=== PATIENT | female | born 1955 | race Caucasian/White ===

== ENCOUNTER → 2024-09-13 | Outpatient (CLI) | payer MEDICARE, SELFPAY ==
--- NOTE | 2024-09-13 14:05 | XR_ITS ---
Examination: Bone densitometry Date and time of exam:September 13, 2024 1421 hours INDICATIONS: Hysterectomy age 53, osteoporotic compression fracture history in the dorsal lumbar spine, diagnosis osteogenesis imperfecta, family history mother osteoporosis Technique: Lumbar spine and hip total bone mineralization values of an calculated. Peak reference and age match control results have been displayed. Findings: Lumbar spine total bone mineralization is0.775 gm/cm2. This is 2.7 standard deviations below peak reference. This is 0.5 standard deviations below age-matched controls. Hip total bone mineralization is 0.743 gm/cm2 This is 1.6 standard deviations below peak reference. This is 0.1 standard deviations below age-matched controls Impression: There is osteoporosis based on lumbar spine measurements. There is osteopenia based on hip measurements Lumbar mineralization is decreased 8.1% compared with May 08, 2018 Hip mineralization is decreased 4.0% compared with May 08, 2018
== END | disposition home or self-care (01) ==
LOC: CDIM 13:38
PROVIDERS: PCP Physician Assistant Medical; Referring Provider Physician Assistant Medical; Visit Provider Physician Assistant Medical
DX: M81.0 Age-related osteoporosis without current pathological fracture (principal); M85.89 Other specified disorders of bone density and structure, multiple sites
CPT/HCPCS: 77080

== ENCOUNTER 2024-11-01 10:03 | Emergency (ER) | payer MEDICARE, SELFPAY ==
[2024-11-01 10:05] VITALS: BMI 33.0
--- NOTE | 2024-11-01 10:27 | XR_ITS ---
Examination: Lumbar spine 3 views TECHNIQUE: AP lateral coned lateral lower lumbar spine 3 views Date and time: November 01, 2024 1050 hours INDICATIONS: Patient fell today with injury to the lower back, lower back pain. FINDINGS: Severe osteopenia Chronic compressions lumbar vertebral bodies Kyphoplasty L3, L1, T12, T11 No definite acute fracture Significant disc narrowing L5-S1 IMPRESSION: Severe osteopenia No definite acute fracture
--- NOTE | 2024-11-01 10:27 | XR_ITS ---
Examination: Ribs, left, with PA chest, 4 views Technique: Chest PA, RIBS AP, RPO, LPO, 4 views Exam date and time: November 01, 2024 1050 hours INDICATIONS: Patient fell today with into the left chest, left rib pain Findings: Normal heart size No pneumothorax Severe osteopenia No acute rib fractures IMPRESSION: No pneumothorax pulmonary contusion or hemothorax No acute rib fractures
[2024-11-01 10:33] VITALS: BP 130/81; PULSE 74; RESP 17; TEMP 36.8; O2SAT 96
--- NOTE | 2024-11-01 10:44 | PD.EDFALL ---
ED Fall Injury RME/HPI General Chief Complaint: Fall Stated Complaint: BACK/RIB PAIN S/P FALL ON FRIDAY Time Seen by Provider: 11/01/24 10:19 Source: patient Arrival date/time: 11/01/24 10:03 69-year-old female with a history of hypertension presents to the emergency room with a chief complaint of left-sided rib pain and lower back pain after a fall that occurred on Friday. Mode of arrival: ambulatory Limitations: no limitations Related Data Home Medications ?Medication ?Instructions ?Recorded ?Confirmed calcitonin (salmon) 200 1 spray intranasal QDAY 05/04/17 01/12/20 unit/actuation nasal spray aspirin 81 mg tablet,delayed 81 mg PO BID 03/31/19 01/12/20 release ibandronate 150 mg tablet 150 mg PO QMONTH 03/31/19 01/12/20 rivaroxaban 2.5 mg tablet (Xarelto) 2.5 mg PO BID 03/31/19 01/12/20 Previous Rx's ?Medication ?Instructions ?Recorded cyclobenzaprine 10 mg tablet 10 mg PO TID PRN muscle spasm #30 03/31/19 tabs diazepam 5 mg tablet (Valium) 5 mg PO BID PRN muscle spasm #20 01/12/20 tabs Allergies Allergy/AdvReac Type Severity Reaction Status Date / Time No Known Allergies Allergy Verified 11/01/24 10:07 Review of Systems Review of Systems Systems Reviewed: All systems reviewed, normal except as documented Constitutional Constitutional: Reports system reviewed and no additional complaints, except as documented, Denies fatigue, Denies fever(s), Denies headache(s) and Denies weakness Eyes Eyes: Reports system reviewed and no additional complaints, except as documented, Denies blurry vision and Denies change in vision ENT Ears, Nose, Mouth, and Throat: Reports system reviewed and no additional complaints, except as documented, Denies otalgia, Denies headache(s), Denies nasal congestion, Denies throat swelling and Denies vertigo Cardiovascular Cardiovascular: Reports system reviewed and no additional complaints, except as documented, Denies chest pain, Reports dyspnea and Denies dyspnea on exertion Respiratory Respiratory: Reports system reviewed and no additional complaints, except as documented, Denies chest congestion, Denies cough, Reports dyspnea, Denies dyspnea on exertion, Reports pain on inspiration and Denies wheezing Gastrointestinal Gastrointestinal: Reports system reviewed and no additional complaints, except as documented, Denies abdominal pain, Denies cramping, Denies nausea and Denies vomiting Genitourinary Genitourinary: Reports system reviewed and no additional complaints, except as documented Musculoskeletal Musculoskeletal: Reports system reviewed and no additional complaints, except as documented, Reports arthralgias and Denies back pain Integumentary/Breasts Skin/Breast: Reports system reviewed and no additional complaints, except as documented and Denies wounds Neurologic Neurologic: Reports system reviewed and no additional complaints, except as documented, Denies confusion, Denies headache(s), Denies lack of coordination, Denies vertigo and Denies weakness Psychiatric Psychiatric: Reports system reviewed and no additional complaints, except as documented, Denies anxiety, Denies confusion, Denies depression, Denies paranoia, Denies suicidal ideation and Denies tactile hallucinations Endocrine Endocrine: Reports system reviewed and no additional complaints, except as documented and Denies fatigue Hematologic/Lymphatic Hematologic/Lymphatic: Reports system reviewed and no additional complaints, except as documented and Denies lymphadenopathy Allergic/Immunologic Allergic/Immunologic: Reports system reviewed and no additional complaints, except as documented, Denies throat swelling, Denies urticaria and Denies wheezing Past Medical History Past Medical History CARDIAC: Positive Cardiac Disorders, Heart Murmur and Hypertension; Negative Congestive Heart Failure RESPIRATORY: Negative Chronic Obstructive Pulmonary Disease (COPD) GASTROINTESTINAL: Positive Hiatal Hernia GENITOURINARY: Negative Renal Disease MUSCULOSKELETAL: Positive Osteoporosis ENDOCRINE: Negative Diabetes Mellitus Type 1 or Diabetes Mellitus Type 2 Family History FAMILY HISTORY: Positive Family Cardiac Disorders and Family Cancer Social History SMOKING STATUS: Former smoker ED Exam General Limitations: Present no limitations General appearance: Present alert and in no apparent distress Head Head exam: Present atraumatic Eye Eye exam: Present normal appearance, PERRL and EOMI ENT ENT exam: Present normal exam, normal oropharynx and mucous membranes moist Neck Neck exam: Present normal inspection, full ROM and trachea midline Chest Chest inspection: Present normal inspection and symmetric chest wall rise Respiratory Respiratory exam: Present normal lung sounds bilaterally; Absent respiratory distress, wheezes, stridor, accessory muscle use or prolonged expiratory phase Cardiovascular Cardiovascular exam: Present regular rate, normal rhythm and normal heart sounds Abdominal Exam Abdominal exam: Present soft and normal bowel sounds Extremities Exam Extremities exam: Present normal inspection and full ROM Back Exam Back exam: Present normal inspection and full ROM Neurological Exam Neurological exam: Present alert, oriented X3 and CN II-XII intact Psychiatric Psychiatric exam: Present normal affect and normal mood Skin Skin exam: Present warm, dry, intact and normal color Course Quality Measures none Orders Category Date Time Status XR lumbar spine 2-3V Stat Exams 11/01/24 10:27 Completed XR ribs LT min 3V w CXR1V Stat Exams 11/01/24 10:27 Completed Ketorolac Inj [Toradol Inj] Med 11/01/24 10:27 Discontinued 30 mg IM X1 ONE Vital Signs Vital signs: Vital Signs Temperature 98.3 F 11/01/24 10:33 Pulse Rate 74 11/01/24 10:33 Respiratory Rate 17 11/01/24 10:33 Blood Pressure 130/81 11/01/24 10:33 Pulse Oximetry (%) 96 11/01/24 10:33 Oxygen Delivery Method Room Air 11/01/24 10:33 Fall MDM Narrative MDM Narrative:: 69-year-old female with a history of hypertension presents to the emergency room with a chief complaint of left-sided rib pain and lower back pain after a fall that occurred on Friday. Patient is hemodynamically stable and in no apparent distress Physical examination shows clear bilateral lung sounds there is no wheezing stridor or any abnormal breath sounds. Physical examination also shows some left-sided rib tenderness with palpation and some lumbar back pain. X-ray of the lumbar spine was negative for any acute fracture or dislocation. It did show severe osteopenia and chronic compression of the lumbar vertebra. Patient was educated to follow-up with her primary care provider. X-ray of the left sided ribs was negative for any acute rib fractures Patient was discharged and educated to follow-up with primary care provider in the next 24 to 48 hours and return to the emergency room for any evidence of worsening signs or symptoms Patient data External records reviewed:: [facility] previous records Clinical information provided by:: patient Social determinants that could affect healthcare access:: none Patient has the following chronic illnesses:: No chronic illness How is presenting disease/condition affected by chronic disease/condition?: no chronic disease Evaluation data The following diagnostics were reviewed and interpreted by me:: lab results and radiology exam(s) Lab and/or radiology exams considered but not ordered:: Labs and radiology exams considered and ordered Interpretation Summary: X-ray left ribs-Findings: Normal heart size No pneumothorax Severe osteopenia No acute rib fractures IMPRESSION: No pneumothorax pulmonary contusion or hemothorax No acute rib fractures X-ray lumbar spine-FINDINGS: Severe osteopenia Chronic compressions lumbar vertebral bodies Kyphoplasty L3, L1, T12, T11 No definite acute fracture Significant disc narrowing L5-S1 IMPRESSION: Severe osteopenia No definite acute fracture Medications / Prescriptions Medications or Prescriptions considered but not ordered:: Medication given Medication administrations:: Medication Administration History Discontinued Medications Ketorolac Tromethamine (Ketorolac Inj 60 Mg/2 Ml Vial) 30 mg IM X1 ONE Stop: 11/01/24 10:28 Last Admin: 11/01/24 10:48 Dose: 30 mg Documented By: CN Medication given Consultations Consultation(s) initiated? (list below): No Diagnosis Fall Differential Diagnosis: other (Osteopenia of the lumbar spine/left rib fractures/pneumothorax/hemothorax) Most likely diagnosis given after review of the tests above:: Osteopenia of the lumbar spine Admission Indicated Admission indicated?: not indicated Admission Request Was there a request for admission?: No Disposition Plan Disposition Plan: Discharge Discharge Attestation Discharge Attestation: The patient and all family members were given an opportunity to ask questions and understood the discharge instructions. Discharge instructions specifically effects, indications for sooner follow up or return to the emergency department, and the expected course of current diagnosis. Patient condition: Stable Discharge Plan Plan Patient Disposition: HOME (Self Care) Discharge Disposition comment: Stable Prescriptions/Referrals Prescriptions/Med Rec: No Action aspirin 81 mg Tablet,Delayed Release (Dr/Ec) 81 mg PO BID Xarelto 2.5 mg tablet 2.5 mg PO BID Patient Comments: TAKE 1 TABLET BY MOUTH TWICE A DAY ibandronate 150 mg tablet 150 mg PO QMONTH Patient Comments: TAKE 1 TABLET BY MOUTH ONCE PER MONTH Rx Instructions: TAKE ON THE 17TH EVERY MONTH. cyclobenzaprine 10 mg tablet 10 mg PO TID PRN (Reason: muscle spasm) Qty: 30 0RF diazepam [Valium] 5 mg tablet 5 mg PO BID PRN (Reason: muscle spasm) Qty: 20 0RF calcitonin (salmon) 200 unit/actuation [place],Non-Aerosol 1 spray Intranasal QDAY Referrals: No Primary/Family,Physician [Primary Care Provider] - In 1 week Problem List Clinical Impression: Osteopenia of lumbar spine Patient/Caregiver Discharge Instructions Additional Instructions: Please follow-up with your primary care provider in the next 24 to 48 hours X-ray of your ribs and chest was negative for any acute findings. There are no broken ribs and there is no acute findings with your lungs The x-ray of your lumbar spine showed severe osteopenia which is weakening of your bones. There is no acute fractures. Please follow-up with your primary care provider or return to the emergency room for any evidence of worsening signs or symptoms Print Language: German Stand Alone Forms: Benita Award Info., Patient Portal Info Letter PA/[employer] DEVELOPER Supervising Physician PA/[employer] DEVELOPER Supervising Physician: Dr. Noel
[2024-11-01] MEDS: KETOROLAC INJ 60 MG/2 ML VIAL 30 MG IM (10:48)
== END 2024-11-01 11:37 | disposition home or self-care (01) ==
PROVIDERS: Emergency Provider Emergency Medicine
DX: M85.88 Other specified disorders of bone density and structure, other site (principal); G95.29 Other cord compression; R07.89 Other chest pain; I10 Essential (primary) hypertension; Z87.891 Personal history of nicotine dependence; W19.XXXA Unspecified fall, initial encounter
CPT/HCPCS: 71101; 72100; 96372; 99283; J1885